=== PATIENT | female | born 1975 | race African-American/Black ===

== ENCOUNTER 2017-01-19 09:03 | Emergency (ER) | payer OTHER ==
[~2017-01-19] VITALS: Ht 165.1 cm; Wt 61.2 kg
--- NOTE | 2017-01-19 09:44 | NUR ---
LAB JAQUELINE BLOOD, EKG DONE.
[2017-01-19 09:48] LABS: BASOPHILS % (AUTO) 0.4 % (0.0-2.0); EOSINOPHILS # (AUTO) 0.1 K/uL (0.0-0.7); HEMATOCRIT 36.6 % (37.0-47.0); HEMOGLOBIN 12.4 g/dL (12.0-16.0); LYMPHOCYTES # (AUTO) 2.2 K/uL (0.8-4.8); LYMPHOCYTES % (AUTO) 29.4 % (20.5-51.5); MEAN CORPUSCULAR HEMOGLOBIN 30.6 uug (27.0-31.0); MEAN CORPUSCULAR HGB CONC 34 g/dL (32.0-37.0); MEAN CORPUSCULAR VOLUME 90.7 fL (81.0-99.0); MONOCYTES # (AUTO) 0.4 K/uL (0.1-1.30); MONOCYTES % (AUTO) 5.4 % (0.0-11.0); NEUTROPHILS # (AUTO) 4.9 K/uL (1.8-8.9); NEUTROPHILS % (AUTO) 63.8 % (38.5-71.5); PLATELET COUNT (AUTO) 271 K/uL (150-450); RED BLOOD CELL COUNT(AUTO) 4.04 MIL/uL (4.20-5.40); RED CELL DISTRIBUTION WIDTH 11.3 % (11.5-14.5); WHITE BLOOD COUNT (AUTO) 7.6 K/uL (4.0-11.2)
[2017-01-19 09:58] LABS: CALCIUM 9.4 mg/dL (8.5-10.1); CREATININE 0.9 mg/dL (0.6-1.3); POTASSIUM 3.8 mmol/L (3.5-5.1)
[2017-01-19 10:04] LABS: BILIRUBIN,DIRECT 0.1 mg/dL (0.0-0.2); BILIRUBIN,TOTAL 0.4 mg/dL (0.2-1.0)
--- NOTE | 2017-01-19 11:26 | NUR ---
MSE COMPLETED, ACI GIVEN. PT AMBULATED W/O DIFF/TOOK ALL BELONGINGS.
[2017-01-19 11:29] VITALS: BP 148/74
== END 2017-01-19 11:30 | disposition home or self-care (01) ==
LOC: ER 09:03
DX: R07.89 Other chest pain (principal); Z88.1 Allergy status to other antibiotic agents
CPT/HCPCS: 36415; 71010; 80048; 80076; 84484; 84703; 85025; 85379; 85730; 93005; 99285; A4663; 70030-TC